=== PATIENT | female | born 2000 | race Caucasian/White ===

== ENCOUNTER 2024-07-30 13:47 | Emergency (ER) | payer MEDICAID, OTHER ==
[~2024-07-30] VITALS: Ht 142.2 cm; Wt 78.0 kg
[2024-07-30 13:53] VITALS: BP 118/68; PULSE 94; RESP 16; TEMP 98.1; O2SAT 98
[2024-07-30 15:06] LABS: APPEARANCE,URINE TURBID (CLEAR); BILIRUBIN,URINE NEGATIVE (NEGATIVE); BLOOD, URINE 2+ (NEGATIVE); LEUKOCYTE ESTERASE ,URINE NEGATIVE (NEGATIVE); NITRITE, URINE NEGATIVE (NEGATIVE); PROTEIN,URINE TRACE (NEGATIVE); UGLUCOSE NEGATIVE (NEGATIVE); UROBILINOGEN,URINE 0.2 EU/dL (0.2 - 1)
[2024-07-30 15:08] LABS: COLOR,URINE AMBER (YELLOW)
[2024-07-30 15:22] LABS: WBC,URINE 0-5 /HPF (0-5)
[2024-07-30 15:23] LABS: BACTERIA,URINE 10-30 (MOD) /HPF (None Seen); SQUAMOUS EPITHELIAL CELL,UR 4-10 (MOD) /LPF (0-3 (FEW))
[2024-07-30] MEDS: ACETAMINOPHEN EXTRA STRENGTH 500 MG TAB PO ONE (15:32)
[2024-07-30 15:53] LABS: BASOPHILS % (AUTO) 0.2 % (0.0-2.0); EOSINOPHILS # (AUTO) 0.2 K/uL (0-0.4); EOSINOPHILS % (AUTO) 1.6 % (0.0-4.0); HEMATOCRIT 40.4 % (36-48); HEMOGLOBIN 13.3 g/dL (12.0-16.0); LYMPHOCYTES # (AUTO) 2.6 K/uL (2.5-16.5); LYMPHOCYTES % (AUTO) 20.5 % (20.5-51.1); MEAN CORPUSCULAR HEMOGLOBIN 28 pg (27-31); MEAN CORPUSCULAR HGB CONC 33 g/dL (33-37); MONOCYTES # (AUTO) 0.7 K/uL (0.8-1.0); MONOCYTES % (AUTO) 5.9 % (1.7-9.3); NEUTROPHILS % (AUTO) 71.8 % (42.2-75.2); PLATELET COUNT (AUTO) 335 K/uL (140-450); RED BLOOD CELL COUNT(AUTO) 4.75 MIL/uL (4.20-5.40); RED CELL DISTRIBUTION WIDTH 13.2 % (11.6-13.7); WHITE BLOOD COUNT (AUTO) 12.6 K/uL (4.8-10.8)
[2024-07-30 16:04] LABS: ANION GAP 17.6 (8-16); CARBON DIOXIDE 19.6 mmol/L (21-32); CREATININE 0.9 mg/dL (0.6-1.3); POTASSIUM 3.2 mmol/L (3.5-5.1)
[2024-07-30 17:34] VITALS: BP 114/60; PULSE 91; RESP 16; TEMP 98.3; O2SAT 99
== END 2024-07-30 17:34 | disposition home or self-care (01) ==
LOC: MED 13:47
DX: G40.509 Epileptic seizures related to external causes, not intractable, without status epilepticus (principal); M54.2 Cervicalgia; M79.632 Pain in left forearm; J45.909 Unspecified asthma, uncomplicated; Z98.2 Presence of cerebrospinal fluid drainage device
CPT/HCPCS: 36415; 70260; 70360; 70450; 72125; 72170; 73090; 74021; 80048; 81001; 81025; 85025; 87086; 99284